=== PATIENT | male | born 1975 | race Caucasian/White ===

== ENCOUNTER 2016-08-22 05:43 | Day surgery (SDC) | payer OTHER ==
[2016-08-22] MEDS ORDERED: CEFAZOLIN SODIUM 2 GRAM PREMIX 100 ML IV PRN (05:45)
[2016-08-22] MEDS ORDERED: LACTATED RINGERS 1,000 ML ONE ×2 (05:46→09:10)
[2016-08-22] MEDS ORDERED: IV START KIT ONE (05:47)
[2016-08-22] MEDS ORDERED: PROPOFOL 20 ML IV ONE ×4 (06:41→08:11)
[2016-08-22] MEDS ORDERED: FENTANYL 100 MCG/2 ML VIAL ONE ×2 (06:41→07:53)
[2016-08-22] MEDS ORDERED: MIDAZOLAM HCL 1 MG/ML 2ML VIAL ONE (06:41)
[2016-08-22] MEDS ORDERED: DEXAMETHASONE SOD PHOS 4 MG/1 ML VIAL ONE ×2 (06:42→07:35)
[2016-08-22] MEDS ORDERED: ONDANSETRON 4 MG/2ML 2 ML VIAL ONE (06:42)
[2016-08-22] MEDS ORDERED: CEFAZOLIN SODIUM 2 GRAM PREMIX 100 ML IV ONE (06:43)
[2016-08-22] MEDS ORDERED: SCOPOLAMINE 1.5 MG/72 HR 1 EACH PATCH TD ONE ×2 (06:44→07:04)
[2016-08-22] MEDS ORDERED: BUPIVACAINE 0.25% (PRES FREE) 30 ML VIAL ONE (07:05)
[2016-08-22] MEDS ORDERED: KETAMINE HCL UD SYRINGE 100 MG/2 ML IV ONE (07:40)
[2016-08-22] MEDS ORDERED: EPHEDRINE SULFATE UD SYR 25 MG 25 MG/5 ML SYRINGE IV ONE (07:48)
[2016-08-22] MEDS ORDERED: ONDANSETRON 4 MG/2ML 2 ML VIAL IV PRN ×2 (07:50→09:18)
[2016-08-22] MEDS ORDERED: MORPHINE SULFATE 4 MG/ML SYRINGE IV PRN (07:50)
[2016-08-22] MEDS ORDERED: PROMETHAZINE HCL 25 MG/ML VIAL IM PRN (07:50)
[2016-08-22] MEDS ORDERED: FENTANYL 100 MCG/2 ML VIAL IV PRN (07:50)
[2016-08-22] MEDS ORDERED: LACTATED RINGERS 1,000 ML IV SCH ×2 (08:00→09:18)
[2016-08-22] MEDS ORDERED: LIDOCAINE 2% (PRES FREE) 5 ML VIAL ONE (08:18)
[2016-08-22] MEDS ORDERED: KETOROLAC TROMETHAMINE 30 MG/ML 1 ML VIAL ONE (08:33)
--- NOTE | 2016-08-22 08:45 | PCMBPN ---
Brief Post Op Note: Date of Procedure: 08/22/16 Preoperative Diagnosis: 1. 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 [Same] Procedure: right knee arthroscopic removal of loose body and chondroplasty Surgeon: Ezra Damian MD Assist: Froilan KING Anesthesia: GETA, 30mL 0.25% marcaine without epi Findings: pt had a 16mm x 20mm area of bone and cartilage fragment from a chronic OCD lesion on the lateral femoral condyle that became dislodged and has been causing the patient mechanical symptoms of locking and catching. The patient's piece was identified. I examined the piece and did not think that this could adequately be fixed in place and this was removed. I examined the popliteal gutter and posteriorly by the PCL and ACL and did not appreciate any other loose bodies. 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 Condition: extubated, stable vitals, transferred to pacu Complications: None IV Fluids: 900 mLs of LR Urine Output: 0mLs Estimated Blood Loss: 10 mLs Tourniquet Time: [N/A] Specimens: [N/A] Implants: None Drains: [N/A] PLAN: WBAT on the RLE. [place] for pain control and ASA for DVT prophylaxis.
[2016-08-22] MEDS ORDERED: DIPHENHYDRAMINE HCL 50 MG/1 ML VIAL IV PRN (09:18)
[2016-08-22] MEDS ORDERED: ACETAMINOPHEN 325 MG TABLET PO PRN (09:18)
[2016-08-22] MEDS ORDERED: OXYCODONE HCL 5 MG TABLET PO PRN (09:18)
[2016-08-22] MEDS ORDERED: ACETAMINOPHEN 325 MG TABLET ONE (10:44)
--- NOTE | 2016-08-25 09:17 | OP ---
Can ROBLES : 1975 [id number] DATE OF PROCEDURE: August 22, 2016 PREOPERATIVE DIAGNOSES: Right knee lateral femoral condyle OCD lesion and loose body and patella chondromalacia. POSTOPERATIVE DIAGNOSES: Right knee lateral femoral condyle OCD lesion and loose body and patella chondromalacia. PROCEDURE: RIGHT KNEE ARTHROSCOPIC REMOVAL OF LOOSE CHONDRAL BODY AND CHONDROPLASTY. SURGEON: Ezra Damian M.D. TIMING INSPECTOR: Cecy Brunson ANESTHESIA: General along with 30 mL of 0.25% Marcaine without epinephrine. FINDINGS: The patient had mechanical locking symptoms of his right knee. I found he has a history of a chronic OCD lesion and these chondral pieces have broken off. I was able to identify one large 16 x 20 mm area of cartilage which had become dislodged. I found this piece, placed it back in this defect. I did not think that there would be enough bone to potentially make it a worthwhile repair. As planned I elected to excise this piece. I measured the defect with my arthroscopic probe. I thought that the defect measured 16 mm x 20 mm. The patient lateral and medial meniscus all appear to be normal with normal appearing ACL and PCL. I saw no other large loose bodies in his knee. The patient had grade 2 and grade 3 chondromalacia changes on that undersurface of the patella. CONDITION: The patient was extubated with stable vital signs and transferred to the PACU. COMPLICATIONS: None. INTRAVENOUS FLUIDS: 900 mL of Lactated Ringer's. URINE OUTPUT: 0 mL ESTIMATED BLOOD LOSS: 10 mL SPECIMENS: N/A TOURNIQUET TIME: N/A IMPLANTS: None. DRAINS: N/A PLAN: The patient will be weight-bearing as tolerated on the right lower extremity with crutches. [place] for pain control. Aspirin for DVT prophylaxis postoperatively. INDICATIONS: The patient is a 41-year-old male who has had an increase in right knee pain. More recently he has had an instance of locking or catching of the knee more consistent with a loose body. Prior to the patient seeing me, he was seen by my partner Dr. Eid, who ordered an MRI which showed his chronic OCD lesion with two cartilaginous fragments. I repeated and MR arthrogram which shows these fragments have displaced. Based on my evaluation of the fragments I think that this is most likely causing his catching. It is not clear to me that there is enough bone that would allow fixation. This is something that I could evaluate at the time of surgery, but most likely. My recommendation would be a removal of loose body and chondroplasty with possible measuring this for an allograft at a later date. I talked to the patient about his options including other cartilage moravian procedures, however I think because he is having mechanical locking of his knee but is quite discomforting. I think that removing this piece initially maybe the best bet. I spoke to him about the risks and benefits of this procedure which included but are not limited to persistent pain, need for future surgery, development of osteoarthritis, as well as DVT. After a lengthy description, this patient decided to proceed with surgery. PROCEDURE DESCRIPTION: PROCEDURE DESCRIPTION: The patient was seen in the preoperative area where we confirmed the right side was the correct side. They agreed that the right side was the correct side and that our proposed procedure was a right knee arthroscopy with possible loose body removal and chondroplasty and procedures as indicated. The patient's right knee was marked with my initials and the word "yes". I signed and confirmed that the H&P was correct and updated. At this point in time with the patient's leg signed, the patient was brought from the preoperative area to the operating theater where they were placed on the OR table. A safety belt was placed and the patient was placed asleep without incident. The patient's right lower extremity was then placed in a knee mcadams and a tourniquet was placed, although it was not elevated for the procedure. The knee was then prepped and draped in sterile fashion first with a Chlorhexadine scrub and prep. Once the knee was prepped, the lateral peripatellar tendon incision was marked with a marking pen as well as the superolateral outflow portal. I then performed a final time out confirming that the right side was the correct side, that Ancef 2 g had been given approximately 20 minutes prior to entering the room. The patient had SCD's on their right lower extremity for intraoperative DVT prophylaxis and xrays and MRI were up on the exam board. After everyone in the room confirmed that the right side was the correct side, 20 mL of 0.25% Marcaine without epinephrine was injected by our portal sites for postop pain relief. A #11 blade was now used with the knee flexed in 30 degrees of flexion to allow entry of my scope into the notch. With this in place I extended the knee placing the scope into the patellofemoral joint. I then used the #11 blade to make my lateral superior outflow portal. I then performed a diagnostic knee arthroscopy. My diagnostic arthroscopy started with the patellofemoral joint, the patient had evidence of grade 2 and grade 3 changes in the middle facet of the undersurface of the patella. Moving my scope down into the lateral gutter I did see a small piece in the popliteal gutter. This was able to flush out and was in the notch of the femur. At this point with this piece visualized. I was able to identify the larger fragmented cartilaginous piece. With the leg in the figure of four position I used a spinal needle to make a medial portal. With my medial portal made I then manipulated the piece with an arthroscopic grasper, placing it back into the defect. After looking at it, it did appear that it had had minimal amount of bone and based on its appearance I thought that it would be a low likelihood that a successful reduction of this piece could get it to heal back. I elected to debride this. This was taken out through the medial portal after I enlarged this. I then used my arthroscopic probe to measure the defect. I measured this at 20 mm x 16 mm. I then examined the lateral meniscus, medial meniscus, ACL and PCL. I placed my scope behind the ACL looking for any other loose bodies were, none were found. The cartilaginous surfaces on the tibia on both the lateral and medial compartments all was well appearing. No signs of any chondromalacia in the medial compartment as well. At this point I confirmed good hemostasis and was ready to close. The incision was now closed with 4-0 nylon simple sutures. Next, 20mL of 0.25% marcaine without epinephrine was injected at the portal sites. The patient's knee was checked for having good hemostasis and all needles counts were correct at the end of the case. The knee was covered with a DSD, CHINMAY wrap and a cryo-cuff. The patient was awoken without difficulty and taken to the recovery room. At this point in time, our plan will be to move forward with our plans to further evaluate the patient's symptoms, potentially he would be sufficient with just an arthroscopic debridement, however due to the size of the lesion this may require something more significant. My next plan would be to get alignment films, potentially considering an osteochondral allograft for this large lesion. I think that this might have a more favorable result than an OATS procedure. I attempted to answer all of his questions. Job [id number] CC: [facility]
== END 2016-08-22 17:45 | disposition home or self-care (01) ==
LOC: SDC 05:43
PROVIDERS: ATTEND Orthopaedic Surgery
PROC: 0YB Anatomical Regions, Lower Extremities, Excision (ICD-10-PCS; principal; 2016-08-22)
DX: M93.261 Osteochondritis dissecans, right knee (principal); M22.41 Chondromalacia patellae, right knee
CPT/HCPCS: 29874; J3010 ×2; J1100 ×2; A9270 ×2; J1885; J2250; J2405; J7120 ×2; J0690